=== PATIENT | female | born 1995 | race Asian ===

== ENCOUNTER 2017-09-24 20:15 | Emergency (ER) | payer SELFPAY ==
[~2017-09-24] VITALS: Ht 147.3 cm; Wt 45.9 kg
[~2017-09-24 20:15] MED LIST: IBUP-1222 PO; OXYC-302 PO; PREN1TAB56 PO
[2017-09-24 21:29] LABS: BASOPHILS # (AUTO) 0.06 x10^3/uL (0-0.1); BASOPHILS % (AUTO) 1 % (0-1); EOSINOPHILS # (AUTO) 0.02 x10^3/uL (0-0.4); EOSINOPHILS % (AUTO) 0 % (1-7); LYMPHOCYTES # (AUTO) 1.81 x10^3/uL (1-3.4); LYMPHOCYTES % (AUTO) 18 % (22-44); MD NO; MEAN CORPUSCULAR HEMOGLOBIN 31.5 pg (27.0-34.8); MEAN CORPUSCULAR HGB CONC 33.8 g/dL (32.4-35.8); MEAN CORPUSCULAR VOLUME 93.3 fL (80-100); MEAN PLATELET VOLUME 9.6 fL (7.4-10.4); MONOCYTES # (AUTO) 1.33 x10^3/uL (0.2-0.8); MONOCYTES % (AUTO) 14 % (2-9); NEUTROPHILS # (AUTO) 6.66 x10^3/uL (1.8-6.8); NEUTROPHILS % (AUTO) 67 % (42-75); PLATELET COUNT 176 x10^3/uL (130-400); RED BLOOD COUNT 4.34 x10^6/uL (3.82-5.3); RED CELL DISTRIBUTION WIDTH 12.2 % (9.6-15.2)
[2017-09-24 21:38] LABS: ALANINE AMINOTRANSFERASE 13 U/L (12-78); ALBUMIN 3.3 g/dL (3.4-5.0); ANION GAP 6 mmol/L (5-15); CALCIUM 8.4 mg/dL (8.5-10.1); CHLORIDE 105 mmol/L (98-107); CREATININE 0.76 mg/dL (0.55-1.02)
[2017-09-24 21:42] LABS: ALKALINE PHOSPHATASE 71 U/L (45-117); BILIRUBIN,TOTAL 0.5 mg/dL (0.2-1.0); TOTAL PROTEIN 7.3 g/dL (6.4-8.2)
[2017-09-24 22:01] LABS: MICROSCOPIC INDICATED
[2017-09-24 22:02] LABS: CULTURE INDICATED? YES
[2017-09-24] MEDS ORDERED: METHOCARBAMOL 750 MG TABLET ONE (22:37)
[2017-09-24] MEDS ORDERED: KETOROLAC 30 MG/1 ML ONE (22:38)
[2017-09-24 22:58] VITALS: BP 131/74
[2017-09-24] MEDS ORDERED: KETOROLAC 30 MG/1 ML IM ONE (23:00)
[2017-09-24] MEDS ORDERED: METHOCARBAMOL 750 MG TABLET PO ONE (23:00)
== END 2017-09-25 00:51 | disposition home or self-care (01) ==
LOC: ED 23:35
DX: S39.012A Strain of muscle, fascia and tendon of lower back, initial encounter (principal); N30.00 Acute cystitis without hematuria; X58.XXXA Exposure to other specified factors, initial encounter; Y93.89 Activity, other specified; Y99.8 Other external cause status; Y92.89 Other specified places as the place of occurrence of the external cause
CPT/HCPCS: 36415; 76700; 80053; 81001; 84703; 85025; 87077; 87086; 96372; 99285; J1885; 87186